=== PATIENT | male | born 1995 | race Two or more races ===

== ENCOUNTER 2018-10-28 00:16 | Emergency (ER) | payer SELFPAY ==
[2018-10-28] MEDS ORDERED: Ciprofloxacin 0.3% Ophth Soln 5 ML Bottle EYELF ONE (00:46)
--- NOTE | 2018-10-28 01:00 | EDM.PDOC ---
ED HPI GENERAL MEDICAL PROBLEM - General Chief Complaint: ENT Problem Stated Complaint: EYE PROBLEM Time Seen by Provider: 10/28/18 00:30 Source of Information: Reports: Patient History Limitations: Reports: No Limitations - History of Present Illness INITIAL COMMENTS - FREE TEXT/NARRATIVE: The patient presents with left eye pain. He feels like there is something in his left eye. He was at work doing some grinding today. He thinks he may have gotten some metal in his eye. He could not see any metal but he feels it. His tetanus is up to date. Onset: Sudden Duration: Hour(s): Location: Reports: Other (Left eye) Quality: Reports: Sharp Severity: Severe Improves with: Reports: None Worsens with: Reports: None Associated Symptoms: Reports: No Other Symptoms Right Eye Pain Score (Numeric/FACES): 5 - Related Data Allergies Allergy/AdvReac Type Severity Reaction Status Date / Time No Known Allergies Allergy Verified 10/28/18 00:30 Home Meds: Home Meds . [No Known Home Meds] 10/28/18 [History] Past Medical History - Past Health History Medical/Surgical History: Denies Medical/Surgical History Social & Family History - Family History Family Medical History: Noncontributory - Tobacco Use Smoking Status *Q: Never Smoker Second Hand Smoke Exposure: No - Caffeine Use Caffeine Use: Reports: Energy Drinks - Recreational Drug Use Recreational Drug Use: No ED ROS ENT - Review of Systems Review Of Systems: See Below Constitutional: Reports: No Symptoms HEENT: Reports: Eye Pain (Left) Respiratory: Reports: No Symptoms Cardiovascular: Reports: No Symptoms Endocrine: Reports: No Symptoms GI/Abdominal: Reports: No Symptoms : Reports: No Symptoms Musculoskeletal: Reports: No Symptoms ED EXAM, ENT - Physical Exam Exam: See Below Exam Limited By: No Limitations General Appearance: Alert, No Apparent Distress Eye Exam: Left Eye: Foreign Body (medial cornea with rust ring), Bilateral Eye: EOMI, PERRL Ears: Normal External Exam Nose: Normal Inspection Head: Atraumatic, Normocephalic Respiratory/Chest: No Respiratory Distress ED EYE PROCEDURE - Eye Procedure Alcaine Drops Administered: Yes (Proparacaine) Eye FB Removal: Other (removed with eye spud) Eye Irrigated w/ Saline (ccs): 10 Antibiotic Oinment/Drps Admin: Left Eye Course - Vital Signs Last Recorded V/S: Last Vital Signs Temp 96.2 F 10/28/18 00:23 Pulse 76 10/28/18 00:23 Resp 16 10/28/18 00:23 BP 141/90 H 10/28/18 00:23 Pulse Ox 100 10/28/18 00:23 - Orders/Labs/Meds Meds: Medications Discontinued Medications Generic Name Dose Route Start Last Admin Trade Name Freq PRN Reason Stop Dose Admin Ciprofloxacin 1 ml 10/28/18 00:46 Ciloxan 0.3% Ophth Soln EYELF 10/28/18 00:47 ONETIME ONE - Re-Assessments/Exams Free Text/Narrative Re-Assessment/Exam: 10/28/18 00:57 I anaesthetised the left eye with proparicaine. I then used some fluress to examine his eye with the slit lamp. I could see a metalic FB to the medial left cornea. I used an eye spud to remove it. There was a rust ring still present. I used a small eye jacquelyn drill to remove the rust ring. His eye was then irrigated and he was given some cipro drops. He tolerated the procedure well and there were no complications. Departure - Departure Time of Disposition: 01:00 Disposition: Home, Self-Care 01 Condition: Good Clinical Impression: Corneal rust ring of left eye Eye foreign body Qualifiers: Encounter type: initial encounter Laterality: left Qualified Code(s): T15.92XA - Foreign body on external eye, part unspecified, left eye, initial encounter - Discharge Information *PRESCRIPTION DRUG MONITORING PROGRAM REVIEWED*: Not Applicable *COPY OF PRESCRIPTION DRUG MONITORING REPORT IN PATIENT CYDNEY: Not Applicable Referrals: PCP,None [Primary Care Provider] - Additional Instructions: Use the cipro drops 1 drop in the left eye every 4 hours while awake for a week. Please return if you are worse or follow up with an field service engineer.
== END 2018-10-28 01:11 | disposition home or self-care (01) ==
LOC: JD.ED 00:16
DX: T15.92XA Foreign body on external eye, part unspecified, left eye, initial encounter (principal)
CPT/HCPCS: 65222; 99283; A9270; 65205; 99282